=== PATIENT | female | born 1995 | race American Indian/Alaskan Native ===

== ENCOUNTER 2017-03-05 13:16 | Emergency (ER) | payer SELFPAY ==
[2017-03-05 13:30] VITALS: BP 105/64
[2017-03-05] MEDS ORDERED: DECADRON IM ONE (13:54)
[2017-03-05] MEDS ORDERED: XYLOCAINE 1% MPF 5 mL INFILTRATI ONE (13:54)
[2017-03-05] MEDS ORDERED: ROCEPHIN IM ONE (13:54)
--- NOTE | 2017-03-05 14:00 | Emergency Department Report ---
- General Chief Complaint: Sore Throat Stated Complaint: SORE THROAT Time Seen by Provider: 03/05/17 13:48 Source: patient Mode of arrival: Ambulatory Limitations: No Limitations - History of Present Illness Initial Comments: Patient comes into the ER today with complaints of sore throat, bilateral ear pain, nasal congestion for the past 2 days. Patient states that she woke up 2 days ago with her throat hurting and states that the pain and swelling seems to be progressing. Patient states it is painful to swallow and she is not wanting eat any food because the pain. Denies any chest pain, abdominal pain, vomiting. MD Complaint: sore throat, nasal congestion - Related Data Previous Rx's Medication Instructions Recorded Last Taken Type Amoxicillin 1,000 mg PO BID #40 capsule 03/05/17 Unknown Rx Allergies Allergy/AdvReac Type Severity Reaction Status Date / Time No Known Allergies Allergy Unverified 05/30/13 15:52 ED Review of Systems ROS: Stated complaint: SORE THROAT Other details as noted in HPI Constitutional: denies: chills, fever Eyes: denies: eye pain, eye discharge, vision change ENT: ear pain, throat pain, congestion Respiratory: denies: cough, shortness of breath, wheezing Cardiovascular: denies: chest pain, palpitations Endocrine: no symptoms reported Gastrointestinal: denies: abdominal pain, nausea, diarrhea Genitourinary: denies: urgency, dysuria, discharge Musculoskeletal: denies: back pain, joint swelling, arthralgia Skin: denies: rash, lesions Neurological: denies: headache, weakness, paresthesias Psychiatric: denies: anxiety, depression Hematological/Lymphatic: denies: easy bleeding, easy bruising ED Past Medical Hx - Past Medical History Previous Medical History?: No - Surgical History Past Surgical History?: No - Social History Smoking Status: Light Tobacco Smoker Substance Use Type: None - Medications Home Medications: Home Medications Medication Instructions Recorded Confirmed Last Taken Type Amoxicillin 1,000 mg PO BID #40 capsule 03/05/17 Unknown Rx ED Physical Exam - General Limitations: No Limitations General appearance: alert, in no apparent distress - Head Head exam: Present: atraumatic, normocephalic - Eye Eye exam: Present: normal appearance. Absent: conjunctival injection - ENT ENT exam: Present: mucous membranes moist, TM's normal bilaterally, normal external ear exam, other (bilateral nasal mucosa redness and swelling, bilateral posterior pharynx erythematous and swelling) - Neck Neck exam: Present: normal inspection, full ROM, lymphadenopathy (mild anterior tonsillar lymphadenopathy with tenderness). Absent: thyromegaly - Respiratory Respiratory exam: Present: normal lung sounds bilaterally. Absent: respiratory distress, wheezes, rales, rhonchi, decreased breath sounds - Cardiovascular Cardiovascular Exam: Present: regular rate, normal rhythm, normal heart sounds. Absent: systolic murmur, diastolic murmur, rubs, gallop - GI/Abdominal GI/Abdominal exam: Present: soft, normal bowel sounds. Absent: distended, tenderness - Extremities Exam Extremities exam: Present: normal inspection - Back Exam Back exam: Present: normal inspection - Neurological Exam Neurological exam: Present: alert, oriented X3 - Psychiatric Psychiatric exam: Present: normal affect, normal mood - Skin Skin exam: Present: warm, dry, intact, normal color. Absent: rash ED Course Vital Signs 03/05/17 03/05/17 13:25 13:31 Temperature 98.2 F 98.2 F Pulse Rate 89 89 Respiratory 18 Rate Blood Pressure 105/64 Blood Pressure 105/64 [Right] O2 Sat by Pulse 100 100 Oximetry ED Medical Decision Making - Medical Decision Making Patient is nontoxic and hemodynamically stable. Patient does have exam findings consistent with pharyngitis and patient states that she has had strep throat before and feels like this may be the same. I will start patient on antibiotics accordingly for her infection and she is to follow-up with the primary care doctor if symptoms fail to resolve or worsen. Patient is in agreement with treatment plan and patient is stable for discharge. Critical care attestation.: If time is entered above; I have spent that time in minutes in the direct care of this critically ill patient, excluding procedure time. ED Disposition Clinical Impression: Pharyngitis, Sinusitis Disposition: DC-01 TO HOME OR SELFCARE Is pt being admited?: No Does the pt Need Aspirin: No Condition: Good Instructions: Sinusitis (ED), Strep Throat (ED) Prescriptions: Amoxicillin 1,000 mg PO BID #40 capsule Referrals: PRIMARY CARE, [Primary Care Provider] - 3-5 Days Forms: Work/School Release Form(ED) Time of Disposition: 14:22
== END 2017-03-05 14:39 | disposition home or self-care (01) ==
LOC: ED 13:16
DX: J02.9 Acute pharyngitis, unspecified (principal); J32.9 Chronic sinusitis, unspecified; Z72.0 Tobacco use
CPT/HCPCS: 96372; 99282; J0696; J1100